=== PATIENT | male | born 1975 | race African-American/Black ===

== ENCOUNTER 2025-03-20 12:47 | Outpatient (CLI) | payer BC ==
[~2025-03-20 12:47] MED LIST: Iopamidol 370 76% 100 ML VIAL ONE
== END 2025-03-20 12:48 | disposition home or self-care (01) ==
LOC: CT 12:47
PROVIDERS: ATTEND Internal Medicine Gastroenterology
DX: K52.9 Noninfective gastroenteritis and colitis, unspecified (principal); K76.0 Fatty (change of) liver, not elsewhere classified; K57.30 Diverticulosis of large intestine without perforation or abscess without bleeding
CPT/HCPCS: 74178; Q9967